=== PATIENT | male | born 1990 | race Caucasian/White ===

== ENCOUNTER 2022-02-06 15:10 | Emergency (ER) | payer BC, SELFPAY ==
--- NOTE | 2022-02-06 15:46 | CRLHL7_ITS ---
For Patients: As a result of the Cures Act, medical imaging exams and procedure reports are released immediately into your electronic medical record. You may view this report before your referring provider. If you have questions, please contact your health care provider. INDICATION: Recent injury with left rib pain. TECHNIQUE: Chest 2 views. COMPARISON: None. FINDINGS: Cardiovascular and mediastinum: Heart size and vasculature are normal in caliber and appearance. Lungs and pleural spaces: Lungs are clear. No sign of infiltrate or mass. No sign of pleural effusion. No pneumothorax. Bones and soft tissues: No significant findings. IMPRESSION: No acute or significant findings. No findings to explain left-sided pain. Dictated by Nico Burnett MD @ 02/06/2022 4:23:10 PM (Electronically Signed)
[2022-02-06 15:48] VITALS: BP 162/84; PULSE 76; RESP 14; TEMP 36.6; O2SAT 97; BMI 40.9
--- NOTE | 2022-02-06 17:19 | CRLHL7_ITS ---
For Patients: As a result of the Cures Act, medical imaging exams and procedure reports are released immediately into your electronic medical record. You may view this report before your referring provider. If you have questions, please contact your health care provider. INDICATION: Left rib injury. TECHNIQUE: Chest and left ribs 2 views. COMPARISON: None. FINDINGS: Acute nondisplaced fractures are present in the anterior left 8th and 9th ribs. Dictated by Nico Burnett MD @ 02/06/2022 6:36:29 PM (Electronically Signed)
[2022-02-06 17:56] VITALS: PULSE 70; O2SAT 96
--- NOTE | 2022-02-13 17:48 | ED_ITS ---
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 This certainly hurt at the time but seemed to be improving. More recently did hear a pop and now having marked increase in his pain. Rotational movement hurts. Deep breathing hurts. Worried he might have sustained a rib fracture. No fever. No abdominal pain. Related Data Home Medications Medication Instructions Recorded Confirmed No Known Home Medications 02/06/22 02/06/22 Allergies Allergy/AdvReac Type Severity Reaction Status Date / Time No Known Drug Allergies Allergy Verified 02/06/22 15:47 Review of Systems Status of ROS Reports: 6 or more systems reviewed and unremarkable except as noted in History and below PFSH PFSH Social History Smoking Status: Former smoker How often do you have a drink containing alcohol: monthly or less How many standard drinks containing alcohol do you have on a typical day: 1 or 2 How often do you have six or more drinks on one occasion: Never AUDIT-C Alcohol total score: 1 Non-prescribed substance use: denies use Exam Narrative Exam Narrative: Pleasant. Large man. NAD other than does not voluntarily wince I think on movement at times. Equal chest rise. No supraclavicular crepitus. Lungs are clear. Cardiovascular with regular rate and rhythm. Examination of the chest wall does not reveal surface evidence of abnormality. Does have good deal pain to palpation over the left low anterolateral chest. No midline back tenderness. Neck is supple. Moving all extremities without difficulty although raising left arm seems to cause a little discomfort. Const Documenting provider has reviewed patient's vital signs: yes Course Vital Signs Vital signs: Initial Vital Signs Temperature 97.8 F 02/06/22 15:48 Temperature Source Temporal Artery Scan 02/06/22 15:48 Pulse Rate 76 02/06/22 15:48 Respiratory Rate 14 02/06/22 15:48 Blood Pressure 162/84 H 02/06/22 15:48 Blood Pressure Mean 110 02/06/22 15:48 Blood Pressure Position Sitting 02/06/22 15:48 Pulse Oximetry 97 02/06/22 15:48 Vital Signs Temperature 97.8 F 02/06/22 15:48 Pulse Rate 76 02/06/22 15:48 Respiratory Rate 14 02/06/22 15:48 Blood Pressure 162/84 H 02/06/22 15:48 Pulse Oximetry 97 02/06/22 15:48 Temperature 97.8 F 02/06/22 15:48 Pulse Rate 70 02/06/22 17:56 Respiratory Rate 14 02/06/22 15:48 Blood Pressure 162/84 H 02/06/22 15:48 Pulse Oximetry 96 02/06/22 17:56 Oxygen Delivery Method 02/06/22 17:56 MDM - Chest Pain MDM Narrative Medical decision making narrative: I suspect a fracture. Prior to my seeing Mr. Salgado chest x-ray had already been ordered. Reviewing this I do not see evidence of any abnormality. I am impressed with specific nature of and degree of pain. Therefore ordered for dedicated rib views. This does by my read show a nondisplaced fracture in at least 1 rib corresponding to area of pain with palpation on exam. He is relieved to know that he is not complaining without reason. Dispensed rib binder. Placed this and does offer some relief of discomfort. He had declined other pain medication. Discharge Plan Discharge Clinical Impression: Fracture of rib Patient Disposition: Home, Self-Care Condition: Improved Additional Instructions: You can wear the rib binder for comfort. If using it though remember to take a few deep breaths daily as discussed. Return for increasing and persistent shortness of breath, fever, uncontrolled pain. This may take 2-3 months to heal. Prescriptions: No Action No Known Home Medications Follow Up/Referrals: Provider,Not a Local [Primary Care Provider] - Stand Alone Forms: [employer] Info Instructions
== END 2022-02-06 18:34 | disposition home or self-care (01) ==
PROVIDERS: Emergency Provider Family Medicine
DX: S22.32XA Fracture of one rib, left side, initial encounter for closed fracture (principal); W00.9XXA Unspecified fall due to ice and snow, initial encounter
CPT/HCPCS: 71046; 71100; 99283